=== PATIENT | female | born 1990 | race Asian ===

== ENCOUNTER 2019-08-03 19:26 | Emergency (ER) | payer MEDICAID ==
[2019-08-03] MEDS ORDERED: DICYCLOMINE 20 MG TAB PO ONE (23:49)
[2019-08-03] MEDS ORDERED: ONDANSETRON 4 MG ODT TAB PO ONE (23:49)
[2019-08-03] MEDS ORDERED: FAMOTIDINE 20 MG TAB PO ONE (23:49)
--- NOTE | 2019-08-04 01:36 | Emergency Department Report ---
ED N/V/D HPI - General Chief complaint: Abdominal Pain Stated complaint: DIARRHEA/NAUSEA Source: patient Mode of arrival: Wheelchair Limitations: No Limitations - History of Present Illness Initial comments: Patient is a 29-year-old -[place] female with history of morbid obesity who presents to the ED with complaint of acute onset persistent intractable nausea and vomiting, diarrhea and epigastric pain for the last 4 days after eating a sandwich. Patient states that the symptoms have been persistent and that in the last 12 hours she has had up to 6 episodes of nausea and vomiting the last of which was 1 hour prior to arrival in the ED. Patient states that other family members have had similar symptoms and are currently under treatment. Patient denies chest pain, shortness of breath, fever, chills, dizziness, syncope, dysuria, urinary frequency and urgency, headache, sore throat, vaginal bleeding or vaginal discharge. MD complaint: nausea, vomiting, diarrhea, abdominal pain -: Sudden, days(s) (4) Description of Vomiting: food contents, watery Description of Diarrhea: water Associated Abdominal Pain: Yes (epigastric) Location: epigastric Radiation: none Severity: moderate Pain Scale: 4 Quality: aching, dull Consistency: intermittent Improves with: none Worsens with: vomiting Context: possible food poisoning, sick contacts Associated Symptoms: denies other symptoms, myalgias, loss of appetite, nausea/vomiting. denies: chest pain, cough, diaphoresis, fever/chills, headaches, malaise, rash, dysuria, shortness of breath, syncope, weakness, other - Related Data Previous Rx's Medication Instructions Recorded Last Taken Type Dicyclomine [Bentyl] 20 mg PO Q6H PRN #24 tablet 08/04/19 Unknown Rx Diphenoxylate/Atropine [Lomotil] 1 - 2 tab PO Q4H PRN #15 tablet 08/04/19 Unknown Rx Famotidine [Pepcid] 20 mg PO Q12H #30 tablet 08/04/19 Unknown Rx Ondansetron [Zofran Odt] 4 mg PO Q6HR PRN #20 tab.rapdis 08/04/19 Unknown Rx Allergies Allergy/AdvReac Type Severity Reaction Status Date / Time latex Allergy Swelling Unverified 10/10/14 13:50 ED Review of Systems ROS: Stated complaint: DIARRHEA/NAUSEA Other details as noted in HPI Constitutional: denies: chills, fever Eyes: denies: eye pain, eye discharge, vision change ENT: denies: ear pain, throat pain Respiratory: denies: cough, shortness of breath, wheezing Cardiovascular: denies: chest pain, palpitations Endocrine: no symptoms reported Gastrointestinal: abdominal pain, nausea, vomiting. denies: diarrhea Genitourinary: denies: urgency, dysuria, discharge Musculoskeletal: denies: back pain, joint swelling, arthralgia Skin: denies: rash, lesions Neurological: denies: headache, weakness, paresthesias Psychiatric: denies: anxiety, depression Hematological/Lymphatic: denies: easy bleeding, easy bruising ED Past Medical Hx - Past Medical History Hx Psychiatric Treatment: (Bipolar) Additional medical history: Spinal bifida, Tachycardia, PToS, endometrial hyperplagia - Surgical History Additional Surgical History: stunt; brain, back, legs, knee - Social History Smoking Status: Never Smoker Substance Use Type: None - Medications Home Medications: Home Medications Medication Instructions Recorded Confirmed Last Taken Type Dicyclomine [Bentyl] 20 mg PO Q6H PRN #24 tablet 08/04/19 Unknown Rx Diphenoxylate/Atropine [Lomotil] 1 - 2 tab PO Q4H PRN #15 tablet 08/04/19 Unknown Rx Famotidine [Pepcid] 20 mg PO Q12H #30 tablet 08/04/19 Unknown Rx Ondansetron [Zofran Odt] 4 mg PO Q6HR PRN #20 tab.rapdis 08/04/19 Unknown Rx ED Physical Exam - General Limitations: No Limitations General appearance: alert, in no apparent distress - Head Head exam: Present: atraumatic, normocephalic, normal inspection - Eye Eye exam: Present: normal appearance, PERRL, EOMI Pupils: Present: normal accommodation - ENT ENT exam: Present: normal exam, normal orophraynx, mucous membranes moist, TM's normal bilaterally, normal external ear exam - Neck Neck exam: Present: normal inspection, full ROM. Absent: tenderness - Respiratory Respiratory exam: Present: normal lung sounds bilaterally. Absent: respiratory distress, wheezes, rhonchi, chest wall tenderness, accessory muscle use, prolonged expiratory - Cardiovascular Cardiovascular Exam: Present: normal rhythm, tachycardia, normal heart sounds. Absent: systolic murmur, diastolic murmur, rubs, gallop - GI/Abdominal GI/Abdominal exam: Present: soft, normal bowel sounds. Absent: tenderness, guarding, rebound, hyperactive bowel sounds, hypoactive bowel sounds, mass - Extremities Exam Extremities exam: Present: normal inspection, full ROM, normal capillary refill - Back Exam Back exam: Present: normal inspection, full ROM. Absent: tenderness, CVA tenderness (R), CVA tenderness (L), muscle spasm, paraspinal tenderness, vertebral tenderness - Neurological Exam Neurological exam: Present: alert, oriented X3, CN II-XII intact, normal gait, reflexes normal - Psychiatric Psychiatric exam: Present: normal affect, normal mood - Skin Skin exam: Present: warm, dry, intact, normal color. Absent: rash ED Course Vital Signs 08/03/19 08/03/19 19:53 21:40 Temperature 99.5 F 99.5 F Pulse Rate 112 H 113 H Respiratory 20 20 Rate Blood Pressure 129/87 129/87 O2 Sat by Pulse 96 96 Oximetry ED Medical Decision Making - Medical Decision Making This is a 29-year-old female who presented to the ED with nausea, vomiting, diarrhea and epigastric pain for 4 days. Other family members in the patient's family does have had similar symptoms and are currently being treated. In the ED, patient is alert and oriented x3 and is not in distress but tachycardic in triage. Patient was treated for nausea and vomiting in the ED. Patient was also treated with antacid and pain medication. On reevaluation, patient passed oral fluid challenge in the ED and was discharged home on antiemetics, antacids and pain medications. Patient was advised to maintain a clear liquid diet for 12 to 24 hours and to take medications and follow-up with her primary care physician in 5 to 7 days for reevaluation. Patient was advised to return to the ED immediately if symptoms get worse. - Differential Diagnosis Viral gastroenteritis; Dehydration; GERD; UTI; Flu like Critical care attestation.: If time is entered above; I have spent that time in minutes in the direct care of this critically ill patient, excluding procedure time. ED Disposition Clinical Impression: Viral gastroenteritis, Nausea, vomiting and diarrhea Disposition: TO HOME OR SELFCARE Is pt being admited?: No Does the pt Need Aspirin: No Condition: Stable Instructions: Abdominal Pain (ED), Acute Nausea and Vomiting (ED), Gastroenteritis (ED) Additional Instructions: Maintain a clear liquid diet for 12 to 24 hours, drink plenty of fluids, take medications and follow-up with your primary care physician in 5 to 7 days for reevaluation. Return to the ED immediately if symptoms get worse. Prescriptions: Dicyclomine [Bentyl] 20 mg PO Q6H PRN #24 tablet PRN Reason: Pain , Severe (7-10) Diphenoxylate/Atropine [Lomotil] 1 - 2 tab PO Q4H PRN #15 tablet PRN Reason: Diarrhea Famotidine [Pepcid] 20 mg PO Q12H #30 tablet Ondansetron [Zofran Odt] 4 mg PO Q6HR PRN #20 tab.rapdis PRN Reason: Nausea Referrals: PRIMARY CARE, [Primary Care Provider] - 3-5 Days [facility] [Outside] - 7-10 days Time of Disposition: 01:36 Print Language: TAJIK
[2019-08-04 02:06] VITALS: BP 119/72
== END 2019-08-04 02:50 | disposition home or self-care (01) ==
LOC: ED 19:26
DX: A08.4 Viral intestinal infection, unspecified (principal); R19.7 Diarrhea, unspecified; R11.2 Nausea with vomiting, unspecified; E66.01 Morbid (severe) obesity due to excess calories; Z79.899 Other long term (current) drug therapy; Z91.040 Latex allergy status; Z68.36 Body mass index [BMI] 36.0-36.9, adult; Z98.890 Other specified postprocedural states
CPT/HCPCS: 99282; Q0162

== ENCOUNTER 2019-11-11 19:55 | Emergency (ER) | payer MEDICAID ==
[2019-11-11] MEDS ORDERED: KETOROLAC 30 MG/1 ML INJ IM ONE (22:02)
[2019-11-11] MEDS ORDERED: ONDANSETRON 4 MG ODT TAB PO ONE (22:03)
[2019-11-11] MEDS ORDERED: MORPHINE 15 MG TAB PO ONE (22:03)
[2019-11-11 22:23] LABS: Bacteria,Urine 1+ /HPF (Negative); Bilirubin,Urine NEG (Negative); Blood,Urine MOD (Negative); Color,Urine Red (Yellow); Mucus,Urine FEW /HPF; Protein,Urine <15 mg/dL mg/dL (Negative); Urobilinogen,Urine < 2.0 mg/dL (<2.0)
[2019-11-11 22:25] LABS: HCG Qualitative,Urine Negative (Negative)
--- NOTE | 2019-11-11 22:35 | Emergency Department Report ---
ED Back Pain/Injury HPI - General Chief Complaint: Back Pain/Injury Stated Complaint: LF BREAST PAIN,LOWER BACK PAIN Source: patient Limitations: No Limitations - History of Present Illness Initial Comments: Patient is a 29-year-old -[place] female with a history of chronic low back pain due to chronic congenital spinal bifida who presents to the ED with acute exacerbation of her chronic pain for the last 2 days despite taking her regular pain medications Percocet 10 mg - 325 mg, Flexeril 10 mg and gabapentin about 8 hours ago. Patient also complains of severe nontraumatic left breast pain for the last 2 days. Patient denies fall, traumatic injury, headache, fever, chills, nausea, vomiting, abdominal pain, dysuria, chest pain, shortness of breath, headache, cough, numbness and tingling or weakness of upper and lower extremities bilaterally or change in vision and dizziness MD Complaint: back pain, other (left breast pain) -: Sudden, days(s) (2) Similar Symptoms Previously: Yes (chronic low back pain, on chronic pain management) Place: home Radiation: none Severity: severe Severity scale (0 -10): 8 Quality: sharp Consistency: constant Improves With: none Worsens With: none Context: unknown Associated Symptoms: denies other symptoms. denies: confusion, weakness, chest pain, numbness, difficulty walking, cough, difficulty urinating, diaphoresis, constipation, headaches, abdominal pain, loss of appetite, malaise, nausea/vomiting, seizure, shortness of breath, syncope, other Treatments Prior to Arrival: prescription analgesics (Percocet 10mg-325mg, Flexeril and Gabapentin ) - Related Data Previous Rx's Medication Instructions Recorded Last Taken Type Dicyclomine [Bentyl] 20 mg PO Q6H PRN #24 tablet 08/04/19 Unknown Rx Diphenoxylate/Atropine [Lomotil] 1 - 2 tab PO Q4H PRN #15 tablet 08/04/19 Unknown Rx Famotidine [Pepcid] 20 mg PO Q12H #30 tablet 08/04/19 Unknown Rx Ondansetron [Zofran Odt] 4 mg PO Q6HR PRN #20 tab.rapdis 08/04/19 Unknown Rx Ibuprofen [Motrin] 800 mg PO Q8HR PRN #30 tablet 11/12/19 Unknown Rx Allergies Allergy/AdvReac Type Severity Reaction Status Date / Time latex Allergy Swelling Unverified 10/10/14 13:50 ED Review of Systems ROS: Stated complaint: LF BREAST PAIN,LOWER BACK PAIN Other details as noted in HPI Constitutional: denies: chills, fever Eyes: denies: eye pain, eye discharge, vision change ENT: denies: ear pain, throat pain Respiratory: denies: cough, shortness of breath, wheezing Cardiovascular: denies: chest pain, palpitations Endocrine: no symptoms reported Gastrointestinal: denies: abdominal pain, nausea, diarrhea Genitourinary: denies: urgency, dysuria, discharge Musculoskeletal: denies: back pain, joint swelling, arthralgia Skin: denies: rash, lesions Neurological: denies: headache, weakness, paresthesias Psychiatric: denies: anxiety, depression Hematological/Lymphatic: denies: easy bleeding, easy bruising ED Past Medical Hx - Past Medical History Hx Psychiatric Treatment: (Bipolar) Additional medical history: Spinal bifida, Tachycardia, PToS, endometrial hyperplagia - Surgical History Additional Surgical History: stunt; brain, back, legs, knee - Social History Smoking Status: Never Smoker Substance Use Type: None - Medications Home Medications: Home Medications Medication Instructions Recorded Confirmed Last Taken Type Dicyclomine [Bentyl] 20 mg PO Q6H PRN #24 tablet 08/04/19 Unknown Rx Diphenoxylate/Atropine [Lomotil] 1 - 2 tab PO Q4H PRN #15 tablet 08/04/19 Unknown Rx Famotidine [Pepcid] 20 mg PO Q12H #30 tablet 08/04/19 Unknown Rx Ondansetron [Zofran Odt] 4 mg PO Q6HR PRN #20 tab.rapdis 08/04/19 Unknown Rx Ibuprofen [Motrin] 800 mg PO Q8HR PRN #30 tablet 11/12/19 Unknown Rx ED Physical Exam - General Limitations: No Limitations General appearance: alert, in no apparent distress - Head Head exam: Present: atraumatic, normocephalic, normal inspection - Eye Eye exam: Present: normal appearance, PERRL Pupils: Present: normal accommodation - ENT ENT exam: Present: normal exam, normal orophraynx, mucous membranes moist, TM's normal bilaterally, normal external ear exam - Neck Neck exam: Present: normal inspection, full ROM. 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 Absent: respiratory distress, wheezes, rales, rhonchi, chest wall tenderness, accessory muscle use, decreased breath sounds - Cardiovascular Cardiovascular Exam: Present: normal rhythm, tachycardia, normal heart sounds. Absent: systolic murmur, diastolic murmur, rubs, gallop - GI/Abdominal GI/Abdominal exam: Present: soft, normal bowel sounds. Absent: tenderness, guarding, rebound, hyperactive bowel sounds, hypoactive bowel sounds - Extremities Exam Extremities exam: Present: normal inspection, full ROM, normal capillary refill - Back Exam Back exam: Present: normal inspection, full ROM, tenderness (Palpable severe lumbosacral paraspinal musculoskeletal tenderness), muscle spasm, paraspinal tenderness - Neurological Exam Neurological exam: Present: alert, oriented X3, CN II-XII intact, normal gait, reflexes normal - Psychiatric Psychiatric exam: Present: normal affect, normal mood, anxious - Skin Skin exam: Present: warm, dry, intact, normal color. Absent: rash ED Course Vital Signs 11/11/19 11/12/19 20:13 01:34 Temperature 98.9 F Pulse Rate 119 H 92 H Respiratory 18 18 Rate Blood Pressure 144/85 Blood Pressure 115/77 [Left] O2 Sat by Pulse 90 98 Oximetry ED Medical Decision Making - Medical Decision Making This is a 29-year-old -[place] female with a history of chronic low back pain due to chronic congenital spinal bifida who presents to the ED with acute exacerbation of her chronic pain for the last 2 days despite taking her regular pain medications Percocet 10 mg - 325 mg, Flexeril 10 mg and gabapentin about 8 hours ago. Patient also complains of severe nontraumatic left breast pain for the last 2 days. In the ED, patient is alert and oriented x3 and is not in distress but appears to be in significant pain, afebrile but tachycardic in triage. Urinalysis is unremarkable with no sign of infection. Patient was treated for pain in the ED and on reevaluation, patient's pain is well controlled with medications. Patient was discharged home and advised to continue taking her regular pain medications. In addition patient was also discharged home on anti-inflammatory medications ibuprofen for her pain. Patient was advised to follow-up with her pain clinic or primary care physician in 2 to 3 days for reevaluation. Patient was otherwise advised return to the ED immediately if symptoms get worse. - Differential Diagnosis Muscle spasm; muscle strain; UTI; Fibrocystic breast changes Critical care attestation.: If time is entered above; I have spent that time in minutes in the direct care of this critically ill patient, excluding procedure time. ED Disposition Clinical Impression: Acute exacerbation of chronic low back pain, Spasm of muscle of lower back Fibrocystic breast disease (FCBD) in female Qualifiers: Laterality: left Qualified Code(s): N60.12 - Diffuse cystic mastopathy of left breast Disposition: TO HOME OR SELFCARE Is pt being admited?: No Does the pt Need Aspirin: No Condition: Stable Instructions: Muscle Spasm (ED), Chronic Back Pain (ED) Additional Instructions: Take your regular pain medication at home together with anti-inflammatory medications. Follow-up with your pain clinic, [facility] physician or primary care physician in 3 to 5 days for reevaluation. Return to the ED immediately if symptoms get worse. Prescriptions: Ibuprofen [Motrin] 800 mg PO Q8HR PRN #30 tablet PRN Reason: Pain , Severe (7-10) Referrals: ANGELA HEREDIA [Other] - 3-5 Days Time of Disposition: 01:10 Print Language: MAORI
[2019-11-12 01:36] VITALS: BP 115/77
== END 2019-11-12 01:36 | disposition home or self-care (01) ==
LOC: ED 19:55
DX: M62.830 Muscle spasm of back (principal); G89.29 Other chronic pain; N60.12 Diffuse cystic mastopathy of left breast; F31.9 Bipolar disorder, unspecified; Z79.899 Other long term (current) drug therapy; Z91.041 Radiographic dye allergy status
CPT/HCPCS: 81001; 81025; 96372; 99283; J1885; Q0162